=== PATIENT | female | born 2000 | race Caucasian/White ===

== ENCOUNTER 2022-02-11 15:20 | Emergency (ER) | payer OTHER ==
[2022-02-11 17:17] LABS: HEMOGLOBIN 12.3 gm/dl (12.3-15.3); RED BLOOD COUNT 4.33 M/UL (4.00-5.10); WHITE BLOOD COUNT 17.3 K/UL (4.5-11.0)
[2022-02-11 17:36] LABS: BUN/CREATININE RATIO 14 (0-10)
[2022-02-11] MEDS ORDERED: OMNICEF 300 MG300 MG PO (21:29)
[2022-02-14 22:11] LABS: CHLAMYDIA TRACHOMATIS, NAA Negative (Negative); NEISSERIA GONORRHOEAE, NAA Negative (Negative)
== END 2022-02-11 21:45 | disposition home or self-care (01) ==
LOC: ER1 15:20
PROVIDERS: Family Medicine
DX: O20.0 Threatened abortion (principal); O23.41 Unspecified infection of urinary tract in pregnancy, first trimester; N39.0 Urinary tract infection, site not specified; O99.111 Other diseases of the blood and blood-forming organs and certain disorders involving the immune mechanism complicating pregnancy, first trimester; D72.829 Elevated white blood cell count, unspecified; Z3A.01 Less than 8 weeks gestation of pregnancy
CPT/HCPCS: 76817; 80053; 81001; 84702; 84703; 85025; 86900; 86901; 87077; 87086; 87186; 96374; 99284; J0696

== ENCOUNTER → 2022-02-13 | Outpatient (CLI) | payer OTHER ==
[~2022-02-13] MED LIST: OMNICEF 300 MG300 MG PO
== END ==
LOC: LAB 07:32
DX: O20.0 Threatened abortion (principal)
CPT/HCPCS: 36415; 84702

== ENCOUNTER → 2022-02-21 | Day surgery (SDC) | payer OTHER ==
[~2022-02-21] VITALS: Ht 134.6 cm; Wt 83.9 kg
[~2022-02-21] MED LIST changes: +DOCUSATE SODIU250 MG PO; +HYDROCODONE-AC1 EACH PO; +IBUPROFEN600 MG PO
[2022-02-21 05:13] LABS: HEMOGLOBIN 10.4 gm/dl (12.3-15.3); RED BLOOD COUNT 3.69 M/UL (4.00-5.10); WHITE BLOOD COUNT 20.4 K/UL (4.5-11.0)
[2022-02-21 05:31] LABS: BUN/CREATININE RATIO 18 (0-10)
[2022-02-21 09:01] LABS: HEMOGLOBIN 9.4 gm/dl (12.3-15.3)
[2022-02-21 11:23] LABS: HEMOGLOBIN 8.4 gm/dl (12.3-15.3)
[2022-02-21 14:09] LABS: HEMOGLOBIN 8.2 gm/dl (12.3-15.3)
== END | disposition home or self-care (01) ==
LOC: ER1 02:40 → CDU 08:46 → ER1 08:46 → OR 09:25 → CDU 17:30
PROVIDERS: Anesthesiology; Emergency Medicine; Family Medicine Addiction Medicine; Obstetrics & Gynecology
DX: O02.1 Missed abortion (principal); O00.101 Right tubal pregnancy without intrauterine pregnancy; N83.8 Other noninflammatory disorders of ovary, fallopian tube and broad ligament
CPT/HCPCS: 71046; 76817; 80053; 84702; 85014; 85018; 85025; 93005; 99285; J0690; J1170; J2001; J2250; J2405; J2704; J2710; J3010; Q9967